=== PATIENT | male | born 1990 | race Caucasian/White ===

== ENCOUNTER 2017-03-08 14:36 | Emergency (ER) | payer OTHER ==
[2017-03-08] MEDS ORDERED: NORMAL SALINE 500 ML IV ONE (14:42)
--- NOTE | 2017-03-08 14:42 | ER Document Report ---
ED Seizure - General Mode of Arrival: Medic Information source: Patient, Friend - HPI Patient complains to provider of: History of seizures Continued on arrival to ED: No Can details of seizure be obtained/verified: Yes Episode witnessed (by whom): Yes - friend and EMS Current seizure medications: Keppra Associated Symptoms: None <AARTI ROJAS - Last Filed: 03/08/17 16:54> <PERCY KELSEY - Last Filed: 03/08/17 23:43> - General Stated Complaint: POSSIBLE SEIZURE Notes: Patient is a 26-year-old male that presents to the emergency department today with complaints of a seizure prior to arrival. According to the patient and friend at bedside, the patient began having "tremors" while walking through [place] just prior to arrival. Friend states when the tremors began, the patient stumbled backwards against a book shelf. EMS states when they arrived, the patient was having intermittent tremors and while in route to this facility had a seizure. According to EMS, the patient was on seizure medication in the past but stopped taking them approximately one year ago ( Keppra). Patient mentions taking Lyrica and gabapentin for chronic pain but he states that he stopped taking his gabapentin but is still taking the Lyrica currently. Friend at bedside states the patient drinks large amounts of caffeine daily but denies any recent EtOH consumption. Patient has a tongue laceration. Patient denies any neck pain. (AARTI ROJAS) Past Medical History - General Information source: Patient - Social History Smoking Status: Unknown if Ever Smoked Cigarette use (# per day): No Chew tobacco use (# tins/day): Yes Frequency of alcohol use: None Drug Abuse: None Lives with: Spouse/Significant other Family History: Reviewed & Not Pertinent Neurological Medical History: Reports: Hx Seizures Musculoskeltal Medical History: Reports Other - Hx chronic pain syndrome- lyrica and gabapentin Surgical Hx: Negative <AARTI ROJAS - Last Filed: 03/08/17 16:54> Review of Systems - Review of Systems Constitutional: No symptoms reported EENT: See HPI, Other - tongue lac Cardiovascular: No symptoms reported Respiratory: No symptoms reported Gastrointestinal: No symptoms reported Genitourinary: No symptoms reported Male Genitourinary: No symptoms reported Musculoskeletal: denies: Neck pain Skin: No symptoms reported Hematologic/Lymphatic: No symptoms reported Neurological/Psychological: See HPI, Seizure -: Yes All other systems reviewed and negative <AARTI ROJAS - Last Filed: 03/08/17 16:54> Physical Exam <BOBAARTI - Last Filed: 03/08/17 16:54> <PERCY KELSEY - Last Filed: 03/08/17 23:43> - Vital signs Vitals: Resp 23 H 03/08/17 14:41 - Notes Notes: Physical Exam: General: Confused, postictal. Drowsy but arousable. HEENT: Normocephalic. Atraumatic. PERRL. Extraocular movements intact. Oropharynx clear. Bite garcia to tongue consistent with seizure episode. No active bleeding. Dry mucous membranes. Neck: Supple. Non-tender. Respiratory: No respiratory distress. Clear and equal breath sounds bilaterally. Cardiovascular: Tachycardic, regular rhythm. Abdominal: Normal Inspection. Non-tender. No distension. Normal Bowel Sounds. Back: Non-tender. No deformity or step off. Extremities: Moves all four extremities. Upper extremities: Normal inspection. Normal ROM. Lower extremities: Normal inspection. No edema. Normal ROM. Neurological: Confused upon initial assessment. No focal neurological deficits. Moves all 4 extremities spontaneously and on command. Psychological: Normal affect. Normal Mood. Skin: Warm. Dry. Normal color. (AARTI ROJAS) Course - Laboratory Result Diagrams: 03/08/17 14:55 03/08/17 15:30 <GILMAR ROJASON - Last Filed: 03/08/17 16:54> - Laboratory Result Diagrams: 03/08/17 14:55 03/08/17 15:30 - EKG Interpretation by Al EKG shows normal: Sinus rhythm Rate: Tachycardia Rhythm: NSR <PERCY KELSEY - Last Filed: 03/08/17 23:43> - Re-evaluation Re-evalutation: 03/08/17 16:06 Patient is a 26-year-old male who comes in after having a seizure. Patient has intermittently been taking Lyrica and gabapentin. Patient also stopped taking seizure medication a year ago because he didn't think he needed it anymore. Patient had been on Keppra. Patient had a tonic-clonic seizure today witnessed by EMS. Patient was also very tachycardic when he came in and had very dark urine. Unfortunately, we were unable to get this as the patient did not urinate until after his third liter of fluid. Patient feels better at this time. Vitals are stable. Patient has been loaded with Keppra and will be restarted on Keppra. He is to follow-up with his primary doctor and also neurologist. Patient feels well. He is at his baseline. He is taking by mouth. No fever. Stable for discharge. Return immediately for any worsening or concerning symptoms. (PERCY KELSEY) - Vital Signs Vital signs: Temp Pulse Resp BP Pulse Ox 97.6 F 18 116/76 98 03/08/17 20:01 03/08/17 20:01 03/08/17 20:01 03/08/17 20:01 - Laboratory Laboratory results interpreted by me: 03/08/17 03/08/17 15:30 18:20 Glucose 132 H Urine Urobilinogen 4.0 H Critical Care Note - Critical Care Note Total time excluding time spent on procedures (mins): 40 - evaluation and management evaluation and management of patient after seizure, multiple re- evaluations, initiation of Keppra, counseling of patient and family <PERCY KELSEY - Last Filed: 03/08/17 23:43> Discharge <AARTI ROJAS - Last Filed: 03/08/17 16:54> <PERCY KELSEY - Last Filed: 03/08/17 23:43> - Discharge Clinical Impression: Seizure, Dehydration Condition: Stable Disposition: HOME, SELF-CARE Instructions: Seizure, Known Epileptic ([facility]), Dehydration ([facility]) Prescriptions: Levetiracetam [Keppra 500 mg Tablet] 500 mg PO Q12 #60 tablet Forms: Return to Work Referrals: KAMRAN HERNANDEZ MD [Primary Care Provider] - Follow up in 3-5 days Scribe Attestation: 03/08/17 23:43 I personally performed the services described in the documentation, reviewed and edited the documentation which was dictated to the scribe in my presence, and it accurately records my words and actions. (PERCY KELSEY) Scribe Documentation - Scribe Written by Scribe:: Mckenzie Gates, 03/08/2017 [id number] acting as scribe for :: Robert <AARTI ROJAS - Last Filed: 03/08/17 16:54>
[2017-03-08] MEDS ORDERED: LEVETIRACETAM 1500 MG/NACL-ISO 100 ML IV ONE (14:54)
[2017-03-08] MEDS ORDERED: NORMAL SALINE 1000 ML 1,000 ML IV ONE ×2 (14:54→16:05)
[2017-03-08 15:16] LABS: ABSOLUTE EOSINOPHILS # (AUTO) 0.1 10^3/uL (0.0-0.6); ABSOLUTE MONOCYTES (AUTO) 0.8 10^3/uL (0.1-1.4); ABSOLUTE NEUT (AUTO) 4.7 10^3/uL (1.7-8.2); BASOPHILS % (AUTO) 0.5 % (0-2); EOSINOPHILS % (AUTO) 0.7 % (0-6); HEMATOCRIT 46.2 % (37.9-51.0); HEMOGLOBIN 15.3 g/dL (13.5-17.0); HGB HCT DIFFERENCE -0.3; LYMPHOCYTES % (AUTO) 26.9 % (13-45); MEAN CORPUSCULAR HEMOGLOBIN 28.6 pg (27.0-33.4); MEAN CORPUSCULAR HGB CONC 33.2 g/dL (32.0-36.0); MEAN CORPUSCULAR VOLUME 86 fl (80-97); MONOCYTES % (AUTO) 10.3 % (3-13); RED BLOOD COUNT 5.35 10^6/uL (4.35-5.55); RED CELL DISTRIBUTION WIDTH 13.2 % (11.5-14.0); SEGMENTED NEUTROPHILS % (AUTO) 61.6 % (42-78); WHITE BLOOD COUNT 7.6 10^3/uL (4.0-10.5)
[2017-03-08 16:00] LABS: ALANINE AMINOTRANSFERASE 39 U/L (21-72); ALBUMIN 4.5 g/dL (3.5-5.0); ALKALINE PHOSPHATASE 55 U/L (38-126); ANION GAP 14 (5-19); ASPARTATE AMINO TRANSFERASE 19 U/L (17-59); BILIRUBIN,DIRECT 0.3 mg/dL (0.0-0.4); BILIRUBIN,TOTAL 0.7 mg/dL (0.2-1.3); BLOOD UREA NITROGEN 12 mg/dL (7-20); CALCIUM 9.6 mg/dL (8.4-10.2); CARBON DIOXIDE 23 mmol/L (22-30); CHLORIDE 104 mmol/L (98-107); CREATINE KINASE 65 U/L (55-170); CREATININE RESULT 1.11 mg/dL (0.52-1.25); GLUCOSE 132 mg/dL (75-110); POTASSIUM 4.7 mmol/L (3.6-5.0); SODIUM 141.2 mmol/L (137-145); TOTAL PROTEIN 6.7 g/dL (6.3-8.2)
[2017-03-08] MEDS ORDERED: NORMAL SALINE 1000 ML 1,000 ML IV PRN (17:42)
--- NOTE | 2017-03-08 18:04 | EKG REPORT ---
SEVERITY:- ABNORMAL ECG - SINUS TACHYCARDIA PROBABLE LEFT ATRIAL ABNORMALITY ABNORMAL T, CONSIDER ISCHEMIA, DIFFUSE LEADS : Confirmed by: Acosta Cronin MD 08-Mar-2017 18:03:19
[2017-03-08 18:47] LABS: AMORPHOUS SEDIMENT,URINE TRACE /HPF; APPEARANCE,URINE SLIGHTLY-CLOUDY; BILIRUBIN,URINE NEGATIVE (NEGATIVE); GLUCOSE, URINE NEGATIVE (NEGATIVE); KETONES,URINE NEGATIVE (NEGATIVE); LEUKOCYTE ESTERASE,URINE NEGATIVE (NEGATIVE); NITRITE,URINE NEGATIVE (NEGATIVE); PROTEIN,URINE NEGATIVE (NEGATIVE); URINE SPECIFIC GRAVITY 1.024
[2017-03-08 20:12] VITALS: BP 116/76
== END 2017-03-08 20:12 | disposition home or self-care (01) ==
LOC: ER 14:36
DX: S01.512A Laceration without foreign body of oral cavity, initial encounter (principal); R56.9 Unspecified convulsions; E86.0 Dehydration; X58.XXXA Exposure to other specified factors, initial encounter
CPT/HCPCS: 93005; 99285; 96365; 36415; 82553; 82550; 85025; 80053; 81001; 93010; J7030; J1953